=== PATIENT | male | born 1955 | race Caucasian/White ===

== ENCOUNTER 2018-03-31 09:09 | Inpatient (IN) | payer MEDICAID ==
[~2018-03-31] VITALS: Ht 182.9 cm; Wt 98.5 kg
[2018-03-31] MEDS ORDERED: SODIUM CHLORIDE FLUSH 10ML SYR IVF ONE (09:30)
[2018-03-31] MEDS ORDERED: SODIUM CHLORIDE 0.9% 1,000ML IVBOLUS ONE (09:30)
[2018-03-31 10:01] LABS: BASOPHILS % (AUTO) 0 % (0-1); EOSINOPHILS % (AUTO) 0 % (1-7); LYMPHOCYTES # (AUTO) 0.18 x10^3/uL (1-3.4); LYMPHOCYTES % (AUTO) 2 % (22-44); MD NO; MEAN CORPUSCULAR HEMOGLOBIN 26.9 pg (27.5-34.5); MEAN CORPUSCULAR HGB CONC 32.9 g/dL (33.2-36.2); MEAN CORPUSCULAR VOLUME 81.9 fL (81-97); MEAN PLATELET VOLUME 7.7 fL (7.4-10.4); MONOCYTES # (AUTO) 0.49 x10^3/uL (0.2-0.8); MONOCYTES % (AUTO) 5 % (2-9); NEUTROPHILS # (AUTO) 9.94 x10^3/uL (1.8-6.8); NEUTROPHILS % (AUTO) 94 % (42-75); PLATELET COUNT 301 x10^3/uL (130-400); RED BLOOD COUNT 5.51 x10^6/uL (4.38-5.82); RED CELL DISTRIBUTION WIDTH 15.9 % (9.4-14.8)
[2018-03-31 10:13] LABS: INTERNATIONAL NORMALIZED RATIO 1.17 (0.93-1.1); PROTHROMBIN TIME 12.3 Seconds (9.6-11.5)
--- NOTE | 2018-03-31 10:13 | NUR ---
Pt transported on gurney to imaging.
[2018-03-31 10:18] LABS: ALBUMIN 4.4 g/dL (3.4-5.0); ANION GAP 9 mmol/L (5-15); CALCIUM 8.8 mg/dL (8.5-10.1); CHLORIDE 91 mmol/L (98-107)
--- NOTE | 2018-03-31 10:19 | NUR ---
LATE NOTE ENTRY FOR 0945: Recieved report from [facility]. All questions answered. Pt resting on gurney connected to all monitors. Pt is diaphoretic and has labored respirations with 4L of oxygen on nasal cannula at 97% SPO2%. Pt wears 4L oxygen at home. Pt has petechiae on digits on both feet. Pt has erythema and swelling of lower extremities bilaterally. PIV established and fluids infusing per EMAR. All safety measures in place.
[2018-03-31 10:23] LABS: ALANINE AMINOTRANSFERASE 35 U/L (12-78); ALKALINE PHOSPHATASE 86 U/L (45-117); BILIRUBIN,TOTAL 1.2 mg/dL (0.2-1.0); TOTAL PROTEIN 8.4 g/dL (6.4-8.2); TROPONIN I < 0.015 ng/mL (0.000-0.045)
[2018-03-31] MEDS ORDERED: BUDE10.2 INH (10:25)
[2018-03-31] MEDS ORDERED: SODI1TAB PO (10:26)
[2018-03-31] MEDS ORDERED: BACL-19 PO (10:27)
[2018-03-31] MEDS ORDERED: FAMO20TA7 PO (10:27)
[2018-03-31] MEDS ORDERED: DOCU100C33 PO (10:28)
[2018-03-31] MEDS ORDERED: TAMS-11 PO (10:28)
[2018-03-31] MEDS ORDERED: MAGN400T7 PO (10:28)
[2018-03-31] MEDS ORDERED: TRAZ150T62 PO (10:29)
[2018-03-31] MEDS ORDERED: BUSP10TA PO (10:30)
[2018-03-31] MEDS ORDERED: PLEASE ENTER ALLERGIES MC SCH (10:30)
[2018-03-31] MEDS ORDERED: CEFTRIAXONE PMX 1GM/50ML 50 ML IVPB ONE (10:30)
[2018-03-31] MEDS ORDERED: RISP2TAB3 PO (10:32)
[2018-03-31] MEDS ORDERED: ALEN10TA6 PO (10:33)
[2018-03-31] MEDS ORDERED: TIOT18CA INH (10:33)
[2018-03-31] MEDS ORDERED: CHOL500050 PO (10:33)
[2018-03-31] MEDS ORDERED: CALC600T23 PO (10:34)
[2018-03-31] MEDS ORDERED: TRAM50TA2 PO (10:34)
[2018-03-31] MEDS ORDERED: WARF7.5T PO (10:34)
[2018-03-31] MEDS ORDERED: ONDA4TAB7 PO (10:35)
[2018-03-31] MEDS ORDERED: D5%-0.45% NACL 1,000 ML IV SCH (10:38)
--- NOTE | 2018-03-31 10:42 | NUR ---
Provided report to [facility]. All questions answered. Pt ready to transfer to floor after PIV antibiotics initated per EMAR.
[2018-03-31] MEDS ORDERED: CEFTRIAXONE PMX 1GM/50ML 50 ML ONE (10:43)
--- NOTE | 2018-03-31 10:52 | NUR ---
Pt transfered to floor from ED with regulatory and compliance technician, monitor, and oxygen. Pt transfered with all personal belongings.
--- NOTE | 2018-03-31 10:52 | NUR ---
PIV medications infusing per EMAR when pt transfered from ED to floor.
[2018-03-31] MEDS ORDERED: ONDANSETRON 2MG/ML, 2ML IVPush PRN (11:00)
[2018-03-31] MEDS ORDERED: ERGOCALCIFEROL 50,000 UNIT CAPSULE PO SCH (11:00)
[2018-03-31] MEDS ORDERED: POLYETHYLENE GLYCOL 17 GM PACKET PO PRN (11:00)
[2018-03-31] MEDS ORDERED: SODIUM CHLORIDE 0.9% 1,000 ML IV SCH (11:00)
[2018-03-31] MEDS ORDERED: ONDANSETRON ODT 4 MG PO PRN (11:00)
[2018-03-31] MEDS ORDERED: LABETALOL 5MG/ML, 20ML IVPush PRN (11:00)
[2018-03-31 11:18] LABS: FREE T4 (FREE THYROXINE) 1.31 ng/dL (0.76-1.46); THYROID STIMULATING HORMONE 0.89 mIU/L (0.358-3.740)
[2018-03-31] MEDS ORDERED: ALBUTEROL/IPRATROPIUM 2.5MG/0.5MG, 3 ML HHN SCH (11:30)
[2018-03-31 12:15] LABS: RAPID INFLUENZA A Negative (Negative); RAPID INFLUENZA B Negative (Negative)
[2018-03-31] MEDS ORDERED: VANCOMYCIN PER PHARMACY MC PRN (13:00)
[2018-03-31] MEDS ORDERED: HEPARIN 5,000 UNITS/ML, 1ML IV ONE (13:00)
[2018-03-31] MEDS ORDERED: POTASSIUM CHLORIDE 20 MEQ, MAGNESIUM SULFATE 1 GM, FOLIC ACID 1 MG, THIAMINE 200 MG, MV... IV SCH (13:00)
[2018-03-31] MEDS ORDERED: HEPARIN 25,000 UNITS/500ML PMX 500 ML IV PRN (13:00)
[2018-03-31] MEDS ORDERED: PHARMACOKINETIC CONSULTATION MC ONE (13:30)
[2018-03-31] MEDS ORDERED: PHARMACOKINETIC MONITORING MC PRN (13:30)
[2018-03-31] MEDS: PIPERACILLIN/TAZO/PMX 3.375GM 50 ML IV SCH ×2 (14:03→19:58)
[2018-03-31] MEDS: VANCOMYCIN 1,900 MG in SODIUM CHLORIDE 0.9% 250 ML IV SCH (14:47)
[2018-03-31] MEDS ORDERED: OMNIPAQUE 350 MG/ML, 100ML BOTTLE ONE (15:28)
[2018-03-31 15:42] VITALS: BP 145/84
[2018-03-31 16:02] LABS: CULTURE INDICATED? YES; MICROSCOPIC INDICATED
[2018-03-31 17:23] LABS: AMPHETAMINE SCREEN, URINE Negative (Negative); BARBITURATE SCREEN, URINE Negative (Negative); BENZODIAZEPINE SCREEN, URINE Negative (Negative); CANNABINOID SCREEN, URINE Negative (Negative); COCAINE SCREEN, URINE Negative (Negative); METHADONE SCREEN, URINE Negative (Negative); OPIATE SCREEN, URINE Negative (Negative)
[2018-03-31] MEDS ORDERED: WARFARIN 7.5 MG TABLET PO-COUM ONE (18:00)
[2018-03-31] MEDS: HEPARIN 25,000 UNITS/500ML PMX 500 ML IV PRN (19:41)
[2018-03-31 20:15] VITALS: BP 99/65
[2018-03-31] MEDS: ALBUTEROL/IPRATROPIUM 2.5MG/0.5MG, 3 ML HHN SCH ×2 (21:00→22:56)
[2018-03-31] MEDS: BUDESONIDE 0.5 MG/2 ML INHA HHN SCH ×2 (21:00→22:56)
[2018-03-31] MEDS ORDERED: TEMPLATE NON-FORMULARY MED. (Budesonide/Formoterol Fumarate (Symbicort 160-4.5 Mcg Inhaler INH SCH (21:00)
[2018-03-31] MEDS: TRAZODONE 150MG TABLET PO SCH (21:00)
[2018-04-01 01:06] VITALS: BP 117/81
[2018-04-01] MEDS: VANCOMYCIN 1,900 MG in SODIUM CHLORIDE 0.9% 250 ML IV SCH ×2 (01:52→14:12)
[2018-04-01] MEDS: ALBUTEROL/IPRATROPIUM 2.5MG/0.5MG, 3 ML HHN SCH ×4 (03:00→19:47)
[2018-04-01 03:33] LABS: ALANINE AMINOTRANSFERASE 52 U/L (12-78); ALBUMIN 2.7 g/dL (3.4-5.0); ANION GAP 6 mmol/L (5-15); CALCIUM 7.6 mg/dL (8.5-10.1); CHLORIDE 98 mmol/L (98-107)
[2018-04-01 03:35] LABS: BASOPHILS # (AUTO) 0.03 x10^3/uL (0-0.1); BASOPHILS % (AUTO) 0 % (0-1); EOSINOPHILS % (AUTO) 1 % (1-7); LYMPHOCYTES # (AUTO) 0.75 x10^3/uL (1-3.4); LYMPHOCYTES % (AUTO) 10 % (22-44); MD NO; MEAN CORPUSCULAR HEMOGLOBIN 25.9 pg (27.5-34.5); MEAN CORPUSCULAR HGB CONC 31.6 g/dL (33.2-36.2); MEAN PLATELET VOLUME 7.9 fL (7.4-10.4); MONOCYTES # (AUTO) 0.86 x10^3/uL (0.2-0.8); MONOCYTES % (AUTO) 12 % (2-9); NEUTROPHILS # (AUTO) 5.65 x10^3/uL (1.8-6.8); NEUTROPHILS % (AUTO) 76 % (42-75); PLATELET COUNT 292 x10^3/uL (130-400); RED BLOOD COUNT 5.21 x10^6/uL (4.38-5.82); RED CELL DISTRIBUTION WIDTH 16.3 % (9.4-14.8)
[2018-04-01 03:44] LABS: ALKALINE PHOSPHATASE 59 U/L (45-117); BILIRUBIN,TOTAL 0.6 mg/dL (0.2-1.0); TOTAL PROTEIN 5.8 g/dL (6.4-8.2)
[2018-04-01] MEDS: PIPERACILLIN/TAZO/PMX 3.375GM 50 ML IV SCH ×4 (04:04→21:38)
[2018-04-01 04:32] LABS: INTERNATIONAL NORMALIZED RATIO 1.45 (0.93-1.1); PROTHROMBIN TIME 15.2 Seconds (9.6-11.5)
[2018-04-01] MEDS: HEPARIN 5,000 UNITS/ML, 1ML IV PRN ×3 (04:33→20:04)
[2018-04-01 07:04] VITALS: BP 119/81
[2018-04-01] MEDS: BUDESONIDE 0.5 MG/2 ML INHA HHN SCH (07:35)
[2018-04-01] MEDS: ALENDRONATE 10 MG TABLET PO SCH (07:48)
[2018-04-01] MEDS: TAMSULOSIN 0.4 MG CAP.ER.24H PO SCH (07:48)
[2018-04-01] MEDS: SENNA/DOCUSATE TABLET PO SCH (07:49)
[2018-04-01] MEDS ORDERED: TEMPLATE NON-FORMULARY MED. (Tiotropium Bromide** (Spiriva**) 18 MCG) INH SCH (09:00)
[2018-04-01 12:17] VITALS: BP 121/81
[2018-04-01] MEDS ORDERED: WARFARIN 7.5 MG TABLET PO-COUM ONE (18:00)
[2018-04-01 19:56] VITALS: BP 100/65
[2018-04-01] MEDS: TRAZODONE 150MG TABLET PO SCH (20:05)
[2018-04-01] MEDS: HEPARIN 25,000 UNITS/500ML PMX 500 ML IV PRN (20:05)
[2018-04-01] MEDS: BUSPIRONE 10 MG TABLET PO SCH (20:05)
[2018-04-01] MEDS: RISPERIDONE 1 MG TABLET PO SCH (20:05)
[2018-04-02 01:52] VITALS: BP 107/72
[2018-04-02] MEDS: VANCOMYCIN 1,900 MG in SODIUM CHLORIDE 0.9% 250 ML IV SCH (02:19)
[2018-04-02] MEDS: ALBUTEROL/IPRATROPIUM 2.5MG/0.5MG, 3 ML HHN SCH ×4 (03:15→19:44)
[2018-04-02] MEDS: HEPARIN 5,000 UNITS/ML, 1ML IV PRN ×3 (03:55→18:15)
[2018-04-02 04:08] LABS: INTERNATIONAL NORMALIZED RATIO 1.27 (0.93-1.1); PROTHROMBIN TIME 13.3 Seconds (9.6-11.5)
[2018-04-02 05:51] VITALS: BP 98/56
[2018-04-02] MEDS: PIPERACILLIN/TAZO/PMX 3.375GM 50 ML IV SCH (06:25)
[2018-04-02 07:14] VITALS: BP 118/78
[2018-04-02] MEDS: ALENDRONATE 10 MG TABLET PO SCH (08:28)
[2018-04-02] MEDS: TAMSULOSIN 0.4 MG CAP.ER.24H PO SCH (08:28)
[2018-04-02] MEDS: SENNA/DOCUSATE TABLET PO SCH (08:28)
[2018-04-02] MEDS: BUSPIRONE 10 MG TABLET PO SCH ×2 (08:28→21:09)
[2018-04-02] MEDS: DOXYCYCLINE 100MG TABLET PO SCH ×2 (08:28→21:09)
[2018-04-02] MEDS: AMPICILLIN/SULBACTAM 3 GM in SODIUM CHLORIDE 0.9% 100 ML IV SCH ×3 (08:29→21:08)
[2018-04-02] MEDS: BUDESONIDE 0.5 MG/2 ML INHA HHN SCH ×2 (09:00→19:45)
[2018-04-02 12:57] LABS: ALBUMIN 2.7 g/dL (3.4-5.0); ANION GAP 6 mmol/L (5-15); CALCIUM 7.8 mg/dL (8.5-10.1); CHLORIDE 99 mmol/L (98-107)
[2018-04-02 13:00] LABS: ALANINE AMINOTRANSFERASE 47 U/L (12-78); ALKALINE PHOSPHATASE 54 U/L (45-117); BASOPHILS # (AUTO) 0.03 x10^3/uL (0-0.1); BASOPHILS % (AUTO) 0 % (0-1); BILIRUBIN,TOTAL 0.7 mg/dL (0.2-1.0); EOSINOPHILS # (AUTO) 0.12 x10^3/uL (0-0.4); EOSINOPHILS % (AUTO) 2 % (1-7); LYMPHOCYTES # (AUTO) 0.48 x10^3/uL (1-3.4); LYMPHOCYTES % (AUTO) 6 % (22-44); MD NO; MEAN CORPUSCULAR HEMOGLOBIN 26.8 pg (27.5-34.5); MEAN CORPUSCULAR HGB CONC 32.8 g/dL (33.2-36.2); MEAN CORPUSCULAR VOLUME 81.7 fL (81-97); MEAN PLATELET VOLUME 7.6 fL (7.4-10.4); MONOCYTES # (AUTO) 0.95 x10^3/uL (0.2-0.8); MONOCYTES % (AUTO) 12 % (2-9); NEUTROPHILS # (AUTO) 6.08 x10^3/uL (1.8-6.8); NEUTROPHILS % (AUTO) 79 % (42-75); PLATELET COUNT 240 x10^3/uL (130-400); RED BLOOD COUNT 4.42 x10^6/uL (4.38-5.82); RED CELL DISTRIBUTION WIDTH 16.8 % (9.4-14.8); TOTAL PROTEIN 5.9 g/dL (6.4-8.2)
[2018-04-02] MEDS: HEPARIN 25,000 UNITS/500ML PMX 500 ML IV PRN (14:03)
[2018-04-02 17:17] VITALS: BP 136/85
[2018-04-02] MEDS ORDERED: WARFARIN 10 MG TABLET PO-COUM ONE (18:00)
[2018-04-02 18:53] VITALS: BP 152/88
[2018-04-02] MEDS: RISPERIDONE 1 MG TABLET PO SCH (21:09)
[2018-04-02] MEDS: TRAZODONE 150MG TABLET PO SCH (21:09)
[2018-04-03 00:39] VITALS: BP 122/77
[2018-04-03] MEDS: HEPARIN 5,000 UNITS/ML, 1ML IV PRN ×3 (01:19→21:07)
[2018-04-03] MEDS: AMPICILLIN/SULBACTAM 3 GM in SODIUM CHLORIDE 0.9% 100 ML IV SCH ×4 (02:24→21:08)
[2018-04-03] MEDS: ALBUTEROL/IPRATROPIUM 2.5MG/0.5MG, 3 ML HHN SCH ×2 (02:51→08:25)
[2018-04-03] MEDS: HEPARIN 25,000 UNITS/500ML PMX 500 ML IV PRN ×2 (04:51→19:38)
[2018-04-03 07:34] VITALS: BP 109/68
[2018-04-03 07:44] LABS: INTERNATIONAL NORMALIZED RATIO 1.86 (0.93-1.1); PROTHROMBIN TIME 19.3 Seconds (9.6-11.5)
[2018-04-03] MEDS: BUDESONIDE 0.5 MG/2 ML INHA HHN SCH ×2 (08:25→21:00)
[2018-04-03] MEDS: DOXYCYCLINE 100MG TABLET PO SCH ×2 (08:36→21:09)
[2018-04-03] MEDS: TAMSULOSIN 0.4 MG CAP.ER.24H PO SCH (08:36)
[2018-04-03] MEDS: BUSPIRONE 10 MG TABLET PO SCH ×2 (08:36→21:09)
[2018-04-03] MEDS: ALENDRONATE 10 MG TABLET PO SCH (08:36)
[2018-04-03] MEDS: SENNA/DOCUSATE TABLET PO SCH (08:36)
[2018-04-03 12:52] VITALS: BP 121/74
[2018-04-03] MEDS ORDERED: ALBUTEROL/IPRATROPIUM 2.5MG/0.5MG, 3 ML HHN PRN (15:30)
[2018-04-03] MEDS ORDERED: WARFARIN 7.5 MG TABLET PO-COUM ONE (18:00)
[2018-04-03 19:11] VITALS: BP 132/67
[2018-04-03] MEDS: TRAZODONE 150MG TABLET PO SCH (21:09)
[2018-04-03] MEDS: RISPERIDONE 1 MG TABLET PO SCH (21:09)
[2018-04-04] MEDS: AMPICILLIN/SULBACTAM 3 GM in SODIUM CHLORIDE 0.9% 100 ML IV SCH ×4 (02:07→20:41)
[2018-04-04 03:39] LABS: INTERNATIONAL NORMALIZED RATIO 2.2 (0.93-1.1); PROTHROMBIN TIME 22.6 Seconds (9.6-11.5)
[2018-04-04 04:00] VITALS: BP 123/73
[2018-04-04] MEDS: BUDESONIDE 0.5 MG/2 ML INHA HHN SCH ×2 (07:51→21:00)
[2018-04-04 07:59] VITALS: BP 137/84
[2018-04-04 08:01] LABS: BASOPHILS # (AUTO) 0.03 x10^3/uL (0-0.1); BASOPHILS % (AUTO) 0 % (0-1); EOSINOPHILS # (AUTO) 0.22 x10^3/uL (0-0.4); EOSINOPHILS % (AUTO) 3 % (1-7); LYMPHOCYTES # (AUTO) 0.36 x10^3/uL (1-3.4); LYMPHOCYTES % (AUTO) 4 % (22-44); MD NO; MEAN CORPUSCULAR HEMOGLOBIN 25.9 pg (27.5-34.5); MEAN CORPUSCULAR HGB CONC 31.4 g/dL (33.2-36.2); MEAN CORPUSCULAR VOLUME 82.4 fL (81-97); MEAN PLATELET VOLUME 7.2 fL (7.4-10.4); MONOCYTES # (AUTO) 0.83 x10^3/uL (0.2-0.8); MONOCYTES % (AUTO) 10 % (2-9); NEUTROPHILS # (AUTO) 7.26 x10^3/uL (1.8-6.8); NEUTROPHILS % (AUTO) 84 % (42-75); PLATELET COUNT 287 x10^3/uL (130-400); RED BLOOD COUNT 4.29 x10^6/uL (4.38-5.82)
[2018-04-04 08:15] LABS: ALBUMIN 2.7 g/dL (3.4-5.0); ANION GAP 8 mmol/L (5-15); CALCIUM 7.6 mg/dL (8.5-10.1); CHLORIDE 100 mmol/L (98-107)
[2018-04-04 08:19] LABS: ALANINE AMINOTRANSFERASE 46 U/L (12-78); ALKALINE PHOSPHATASE 32 U/L (45-117); BILIRUBIN,TOTAL 0.4 mg/dL (0.2-1.0); CREATININE 2.54 mg/dL (0.7-1.3); TOTAL PROTEIN 6.3 g/dL (6.4-8.2)
[2018-04-04] MEDS: TAMSULOSIN 0.4 MG CAP.ER.24H PO SCH (08:21)
[2018-04-04] MEDS: BUSPIRONE 10 MG TABLET PO SCH (08:21)
[2018-04-04] MEDS: ALENDRONATE 10 MG TABLET PO SCH (08:21)
[2018-04-04] MEDS: DOXYCYCLINE 100MG TABLET PO SCH ×2 (08:21→21:54)
[2018-04-04] MEDS: SENNA/DOCUSATE TABLET PO SCH (08:22)
[2018-04-04] MEDS: HEPARIN 25,000 UNITS/500ML PMX 500 ML IV PRN ×2 (08:34→19:14)
[2018-04-04] MEDS ORDERED: ALBUTEROL/IPRATROPIUM 2.5MG/0.5MG, 3 ML HHN SCH (09:00)
[2018-04-04] MEDS ORDERED: PHARMACY MAY ADJ FOR RENAL FX MC PRN (09:30)
[2018-04-04 10:45] LABS: CREATININE,URINE RANDOM 34.7 mg/dL
[2018-04-04] MEDS: HEPARIN 5,000 UNITS/ML, 1ML IV PRN (11:01)
[2018-04-04 13:24] VITALS: BP 146/87
[2018-04-04] MEDS ORDERED: FUROSEMIDE 40 MG/4 ML IV ONE (13:30)
[2018-04-04 16:17] LABS: ANION GAP 8 mmol/L (5-15); CALCIUM 8.4 mg/dL (8.5-10.1); CHLORIDE 100 mmol/L (98-107); CREATININE 2.61 mg/dL (0.7-1.3)
[2018-04-04] MEDS ORDERED: FUROSEMIDE 20 MG/2 ML IV SCH (17:00)
[2018-04-04] MEDS ORDERED: WARFARIN 7.5 MG TABLET PO-COUM ONE (18:00)
[2018-04-04] MEDS ORDERED: SODIUM CHLORIDE 0.9% 500 ML IV SCH (18:30)
[2018-04-04 18:56] VITALS: BP 145/80
[2018-04-04] MEDS: SODIUM CHLORIDE 0.9% 1,000 ML IV SCH (20:41)
[2018-04-04] MEDS: RISPERIDONE 1 MG TABLET PO SCH (21:54)
[2018-04-04] MEDS: TRAZODONE 150MG TABLET PO SCH (22:00)
[2018-04-04] MEDS: FINASTERIDE 5 MG TABLET PO SCH (22:11)
[2018-04-05] MEDS: HEPARIN 5,000 UNITS/ML, 1ML IV PRN (00:59)
[2018-04-05 01:18] VITALS: BP 156/84
[2018-04-05] MEDS: AMPICILLIN/SULBACTAM 3 GM in SODIUM CHLORIDE 0.9% 100 ML IV SCH (02:42)
[2018-04-05 05:39] LABS: BASOPHILS # (AUTO) 0.01 x10^3/uL (0-0.1); BASOPHILS % (AUTO) 0 % (0-1); EOSINOPHILS # (AUTO) 0.34 x10^3/uL (0-0.4); EOSINOPHILS % (AUTO) 4 % (1-7); LYMPHOCYTES # (AUTO) 0.45 x10^3/uL (1-3.4); LYMPHOCYTES % (AUTO) 5 % (22-44); MD NO; MEAN CORPUSCULAR HEMOGLOBIN 26.4 pg (27.5-34.5); MEAN CORPUSCULAR HGB CONC 32.1 g/dL (33.2-36.2); MEAN CORPUSCULAR VOLUME 82.3 fL (81-97); MEAN PLATELET VOLUME 7.8 fL (7.4-10.4); MONOCYTES % (AUTO) 9 % (2-9); NEUTROPHILS % (AUTO) 82 % (42-75); PLATELET COUNT 284 x10^3/uL (130-400); RED BLOOD COUNT 4.08 x10^6/uL (4.38-5.82); RED CELL DISTRIBUTION WIDTH 16.8 % (9.4-14.8)
[2018-04-05] MEDS: SODIUM CHLORIDE 0.9% 1,000 ML IV SCH ×3 (05:44→23:53)
[2018-04-05 05:45] LABS: INTERNATIONAL NORMALIZED RATIO 3.05 (0.93-1.1)
[2018-04-05 05:50] LABS: ANION GAP 8 mmol/L (5-15); CALCIUM 8.1 mg/dL (8.5-10.1); CHLORIDE 101 mmol/L (98-107); CREATININE 2.47 mg/dL (0.7-1.3)
[2018-04-05] MEDS: HEPARIN 25,000 UNITS/500ML PMX 500 ML IV PRN (06:43)
[2018-04-05] MEDS ORDERED: AMOXICILLIN/CLAV 875-125MG TABLET PO SCH (07:00)
[2018-04-05 07:35] VITALS: BP 131/79
[2018-04-05] MEDS: TAMSULOSIN 0.4 MG CAP.ER.24H PO SCH (08:33)
[2018-04-05] MEDS: FINASTERIDE 5 MG TABLET PO SCH (08:33)
[2018-04-05] MEDS: SENNA/DOCUSATE TABLET PO SCH (08:33)
[2018-04-05] MEDS: DOXYCYCLINE 100MG TABLET PO SCH ×2 (08:33→20:09)
[2018-04-05] MEDS ORDERED: BUSPIRONE 10 MG TABLET PO SCH (09:00)
[2018-04-05] MEDS: BUDESONIDE 0.5 MG/2 ML INHA HHN SCH ×2 (09:00→21:00)
[2018-04-05] MEDS ORDERED: WARFARIN 3 MG TABLET PO-COUM ONE ×2 (09:00→18:00)
[2018-04-05 13:35] VITALS: BP 149/90
[2018-04-05 16:16] LABS: ANION GAP 7 mmol/L (5-15); CALCIUM 7.6 mg/dL (8.5-10.1); CHLORIDE 101 mmol/L (98-107); CREATININE 2.41 mg/dL (0.7-1.3)
[2018-04-05 19:18] VITALS: BP 139/82
[2018-04-05] MEDS: TRAZODONE 150MG TABLET PO SCH (20:08)
[2018-04-05] MEDS: CEFDINIR 300 MG CAPSULE PO SCH (20:09)
[2018-04-05] MEDS: RISPERIDONE 1 MG TABLET PO SCH (20:09)
[2018-04-05 22:04] LABS: MICROSCOPIC AUTO
[2018-04-05 22:06] LABS: CULTURE INDICATED? NO
[2018-04-05 22:15] LABS: CREATININE,URINE RANDOM 48.4 mg/dL
[2018-04-06 01:43] VITALS: BP 151/91
[2018-04-06 05:30] LABS: BASOPHILS # (AUTO) 0.03 x10^3/uL (0-0.1); BASOPHILS % (AUTO) 0 % (0-1); EOSINOPHILS # (AUTO) 0.14 x10^3/uL (0-0.4); EOSINOPHILS % (AUTO) 1 % (1-7); LYMPHOCYTES # (AUTO) 0.39 x10^3/uL (1-3.4); LYMPHOCYTES % (AUTO) 4 % (22-44); MD NO; MEAN CORPUSCULAR HEMOGLOBIN 26.8 pg (27.5-34.5); MEAN CORPUSCULAR HGB CONC 33.1 g/dL (33.2-36.2); MEAN CORPUSCULAR VOLUME 81.1 fL (81-97); MEAN PLATELET VOLUME 7.2 fL (7.4-10.4); MONOCYTES % (AUTO) 9 % (2-9); NEUTROPHILS # (AUTO) 8.49 x10^3/uL (1.8-6.8); NEUTROPHILS % (AUTO) 85 % (42-75); PLATELET COUNT 282 x10^3/uL (130-400); RED BLOOD COUNT 3.71 x10^6/uL (4.38-5.82); RED CELL DISTRIBUTION WIDTH 16.4 % (9.4-14.8)
[2018-04-06 05:39] LABS: ALBUMIN 2.6 g/dL (3.4-5.0); ANION GAP 9 mmol/L (5-15); CALCIUM 7.6 mg/dL (8.5-10.1); CHLORIDE 100 mmol/L (98-107); INTERNATIONAL NORMALIZED RATIO 5.26 (0.93-1.1); PROTHROMBIN TIME 52.3 Seconds (9.6-11.5)
[2018-04-06 05:43] LABS: ALANINE AMINOTRANSFERASE 39 U/L (12-78); ALKALINE PHOSPHATASE 66 U/L (45-117); BILIRUBIN,TOTAL 0.5 mg/dL (0.2-1.0); CREATININE 2.23 mg/dL (0.7-1.3)
[2018-04-06 07:30] VITALS: BP 167/95
[2018-04-06] MEDS ORDERED: CARVEDILOL 6.25 MG TABLET PO SCH (08:00)
[2018-04-06] MEDS ORDERED: CARVEDILOL 3.125 MG TABLET PO SCH (08:00)
[2018-04-06] MEDS ORDERED: HOLD COUMADIN MC PRN (08:00)
[2018-04-06] MEDS: BUDESONIDE 0.5 MG/2 ML INHA HHN SCH ×2 (09:00→21:00)
[2018-04-06] MEDS: SENNA/DOCUSATE TABLET PO SCH (09:00)
[2018-04-06] MEDS: RISPERIDONE 1 MG TABLET PO SCH ×2 (09:56→21:35)
[2018-04-06] MEDS: TAMSULOSIN 0.4 MG CAP.ER.24H PO SCH (09:56)
[2018-04-06] MEDS: CEFDINIR 300 MG CAPSULE PO SCH ×2 (09:56→21:34)
[2018-04-06] MEDS: FINASTERIDE 5 MG TABLET PO SCH (09:56)
[2018-04-06 12:39] VITALS: BP 156/82
[2018-04-06] MEDS: ALBUTEROL/IPRATROPIUM 2.5MG/0.5MG, 3 ML HHN PRN (13:31)
[2018-04-06] MEDS: CARVEDILOL 3.125 MG TABLET PO SCH (17:12)
[2018-04-06 19:24] VITALS: BP 131/80
[2018-04-06] MEDS: TRAZODONE 150MG TABLET PO SCH (21:35)
[2018-04-07 01:53] VITALS: BP 126/66
[2018-04-07 05:24] LABS: CALCIUM 8.2 mg/dL (8.5-10.1); CHLORIDE 101 mmol/L (98-107); INTERNATIONAL NORMALIZED RATIO 5.74 (0.93-1.1); PROTHROMBIN TIME 56.9 Seconds (9.6-11.5)
[2018-04-07 05:27] LABS: % IRON SATURATION 9 % (20-55); ANION GAP 7 mmol/L (5-15); CREATININE 1.95 mg/dL (0.7-1.3); IRON LEVEL 26 mcg/dL (65-175); TOTAL IRON BINDING CAPACITY 286 mcg/dL (250-450)
[2018-04-07] MEDS: CARVEDILOL 3.125 MG TABLET PO SCH ×2 (06:04→17:54)
[2018-04-07] MEDS: BUDESONIDE 0.5 MG/2 ML INHA HHN SCH ×2 (06:38→21:00)
[2018-04-07 07:01] VITALS: BP 126/77
[2018-04-07] MEDS ORDERED: HOLD COUMADIN MC PRN (07:30)
[2018-04-07] MEDS: RISPERIDONE 1 MG TABLET PO SCH ×2 (07:48→19:54)
[2018-04-07] MEDS: CEFDINIR 300 MG CAPSULE PO SCH ×2 (07:48→19:53)
[2018-04-07] MEDS: TAMSULOSIN 0.4 MG CAP.ER.24H PO SCH (07:48)
[2018-04-07] MEDS: SENNA/DOCUSATE TABLET PO SCH (07:48)
[2018-04-07] MEDS: FERROUS SULFATE 325 MG TABLET PO SCH (08:42)
[2018-04-07] MEDS: FINASTERIDE 5 MG TABLET PO SCH (08:42)
[2018-04-07 12:15] VITALS: BP 132/85
[2018-04-07 17:41] VITALS: BP 163/103
[2018-04-07 19:47] VITALS: BP 149/90
[2018-04-07] MEDS: TRAZODONE 150MG TABLET PO SCH (19:53)
[2018-04-08 02:37] VITALS: BP 136/90
[2018-04-08 05:31] LABS: INTERNATIONAL NORMALIZED RATIO 3.93 (0.93-1.1); PROTHROMBIN TIME 39.5 Seconds (9.6-11.5)
[2018-04-08] MEDS: CARVEDILOL 3.125 MG TABLET PO SCH ×2 (06:00→06:20)
[2018-04-08 07:51] VITALS: BP 147/76
[2018-04-08] MEDS: ALBUTEROL/IPRATROPIUM 2.5MG/0.5MG, 3 ML HHN PRN (08:20)
[2018-04-08] MEDS: BUDESONIDE 0.5 MG/2 ML INHA HHN SCH ×3 (08:20→21:10)
[2018-04-08] MEDS: CEFDINIR 300 MG CAPSULE PO SCH ×2 (08:38→21:55)
[2018-04-08] MEDS: SENNA/DOCUSATE TABLET PO SCH (08:38)
[2018-04-08] MEDS: TAMSULOSIN 0.4 MG CAP.ER.24H PO SCH (08:38)
[2018-04-08] MEDS: RISPERIDONE 1 MG TABLET PO SCH ×3 (08:38→21:00)
[2018-04-08] MEDS: FINASTERIDE 5 MG TABLET PO SCH (08:38)
[2018-04-08 13:26] VITALS: BP 177/93
[2018-04-08 17:55] VITALS: BP 152/85
[2018-04-08] MEDS: CARVEDILOL 12.5 MG TABLET PO SCH (17:59)
[2018-04-08] MEDS ORDERED: WARFARIN 1 MG TABLET PO-COUM ONE (18:00)
[2018-04-08 20:14] VITALS: BP 147/87
[2018-04-08] MEDS: TRAZODONE 150MG TABLET PO SCH (21:56)
[2018-04-09 02:01] VITALS: BP 135/78
[2018-04-09 05:17] LABS: INTERNATIONAL NORMALIZED RATIO 2.92 (0.93-1.1); PROTHROMBIN TIME 29.7 Seconds (9.6-11.5)
[2018-04-09] MEDS ORDERED: CARVEDILOL 6.25 MG TABLET ONE ×2 (06:37→17:30)
[2018-04-09] MEDS: CARVEDILOL 12.5 MG TABLET PO SCH ×2 (06:40→17:33)
[2018-04-09 06:42] VITALS: BP 135/83
[2018-04-09] MEDS: FERROUS SULFATE 325 MG TABLET PO SCH (08:28)
[2018-04-09] MEDS: TAMSULOSIN 0.4 MG CAP.ER.24H PO SCH (08:28)
[2018-04-09] MEDS: SENNA/DOCUSATE TABLET PO SCH (08:28)
[2018-04-09] MEDS: FINASTERIDE 5 MG TABLET PO SCH (08:29)
[2018-04-09] MEDS: CEFDINIR 300 MG CAPSULE PO SCH ×2 (08:29→20:05)
[2018-04-09 08:42] VITALS: BP 124/75
[2018-04-09 17:26] VITALS: BP 157/89
[2018-04-09] MEDS ORDERED: WARFARIN 2.5 MG TABLET PO-COUM ONE (18:00)
[2018-04-09 18:47] VITALS: BP 158/96
[2018-04-09] MEDS: TRAZODONE 150MG TABLET PO SCH (20:06)
[2018-04-09] MEDS: RISPERIDONE 1 MG TABLET PO SCH (20:06)
[2018-04-09] MEDS: BUDESONIDE 0.5 MG/2 ML INHA HHN SCH (22:40)
[2018-04-10 02:21] VITALS: BP 130/76
[2018-04-10 05:46] LABS: INTERNATIONAL NORMALIZED RATIO 1.8 (0.93-1.1); PROTHROMBIN TIME 18.7 Seconds (9.6-11.5)
[2018-04-10] MEDS ORDERED: CARVEDILOL 6.25 MG TABLET ONE ×2 (05:50→17:14)
[2018-04-10 05:52] LABS: ALBUMIN 2.4 g/dL (3.4-5.0); ANION GAP 4 mmol/L (5-15); CALCIUM 8.7 mg/dL (8.5-10.1); CHLORIDE 105 mmol/L (98-107)
[2018-04-10] MEDS: CARVEDILOL 12.5 MG TABLET PO SCH ×2 (05:53→17:17)
[2018-04-10 05:57] LABS: ALANINE AMINOTRANSFERASE 26 U/L (12-78); ALKALINE PHOSPHATASE 67 U/L (45-117); CREATININE 2.04 mg/dL (0.7-1.3); TOTAL PROTEIN 6.4 g/dL (6.4-8.2)
[2018-04-10 07:55] VITALS: BP 124/71
[2018-04-10] MEDS: FINASTERIDE 5 MG TABLET PO SCH (08:41)
[2018-04-10] MEDS: SENNA/DOCUSATE TABLET PO SCH (08:42)
[2018-04-10] MEDS: CEFDINIR 300 MG CAPSULE PO SCH (08:42)
[2018-04-10] MEDS: TAMSULOSIN 0.4 MG CAP.ER.24H PO SCH (08:42)
[2018-04-10] MEDS: BUDESONIDE 0.5 MG/2 ML INHA HHN SCH ×2 (09:00→20:06)
[2018-04-10 12:57] VITALS: BP 132/73
[2018-04-10] MEDS ORDERED: WARFARIN 7.5 MG TABLET PO-COUM ONE (18:00)
[2018-04-10 19:39] VITALS: BP 145/77
[2018-04-10] MEDS: RISPERIDONE 1 MG TABLET PO SCH (21:20)
[2018-04-10] MEDS: TRAZODONE 150MG TABLET PO SCH (21:21)
[2018-04-11 01:36] VITALS: BP 101/64
[2018-04-11] MEDS ORDERED: CARVEDILOL 6.25 MG TABLET ONE ×2 (05:23→17:27)
[2018-04-11] MEDS: CARVEDILOL 12.5 MG TABLET PO SCH ×2 (05:25→17:30)
[2018-04-11 06:01] LABS: INTERNATIONAL NORMALIZED RATIO 1.54 (0.93-1.1); PROTHROMBIN TIME 16.1 Seconds (9.6-11.5)
[2018-04-11] MEDS: BUDESONIDE 0.5 MG/2 ML INHA HHN SCH ×2 (06:53→21:10)
[2018-04-11] MEDS: FERROUS SULFATE 325 MG TABLET PO SCH (08:00)
[2018-04-11] MEDS: TAMSULOSIN 0.4 MG CAP.ER.24H PO SCH (08:59)
[2018-04-11] MEDS: SENNA/DOCUSATE TABLET PO SCH (08:59)
[2018-04-11] MEDS: FINASTERIDE 5 MG TABLET PO SCH (08:59)
[2018-04-11 09:04] VITALS: BP 126/77
[2018-04-11] MEDS ORDERED: OLANZAPINE 5 MG TABLET PO ONE (15:30)
[2018-04-11 15:43] VITALS: BP 148/74
[2018-04-11] MEDS ORDERED: WARFARIN 7.5 MG TABLET PO-COUM ONE (18:00)
[2018-04-11 18:50] VITALS: BP 137/79
[2018-04-11] MEDS: OLANZAPINE 5 MG TABLET PO SCH (19:42)
[2018-04-12 00:26] VITALS: BP 142/82
[2018-04-12] MEDS: LORazepam 1MG TABLET PO PRN (03:25)
[2018-04-12 05:38] LABS: INTERNATIONAL NORMALIZED RATIO 2.04 (0.93-1.1)
[2018-04-12 06:09] VITALS: BP 138/75
[2018-04-12] MEDS: CARVEDILOL 12.5 MG TABLET PO SCH ×2 (06:10→17:45)
[2018-04-12] MEDS: BUDESONIDE 0.5 MG/2 ML INHA HHN SCH ×2 (08:15→21:53)
[2018-04-12] MEDS: FINASTERIDE 5 MG TABLET PO SCH (08:53)
[2018-04-12] MEDS: TAMSULOSIN 0.4 MG CAP.ER.24H PO SCH (08:53)
[2018-04-12] MEDS: SENNA/DOCUSATE TABLET PO SCH (08:54)
[2018-04-12 08:59] VITALS: BP 144/72
[2018-04-12 15:04] VITALS: BP 135/82
[2018-04-12] MEDS ORDERED: WARFARIN 5 MG TABLET PO-COUM ONE (18:00)
[2018-04-12] MEDS: OLANZAPINE 5 MG TABLET PO SCH (19:16)
[2018-04-12 20:23] VITALS: BP 134/77
[2018-04-13 01:26] VITALS: BP 133/83
[2018-04-13] MEDS: CARVEDILOL 12.5 MG TABLET PO SCH ×2 (05:26→18:00)
[2018-04-13 05:43] LABS: INTERNATIONAL NORMALIZED RATIO 2.08 (0.93-1.1); PROTHROMBIN TIME 21.4 Seconds (9.6-11.5)
[2018-04-13 07:04] VITALS: BP 127/85
[2018-04-13] MEDS: FERROUS SULFATE 325 MG TABLET PO SCH (08:04)
[2018-04-13] MEDS: FINASTERIDE 5 MG TABLET PO SCH (08:04)
[2018-04-13] MEDS: TAMSULOSIN 0.4 MG CAP.ER.24H PO SCH (08:04)
[2018-04-13] MEDS: SENNA/DOCUSATE TABLET PO SCH (08:05)
[2018-04-13] MEDS: BUDESONIDE 0.5 MG/2 ML INHA HHN SCH ×2 (08:29→19:45)
[2018-04-13 12:23] VITALS: BP 130/80
[2018-04-13] MEDS ORDERED: WARFARIN 5 MG TABLET PO-COUM ONE (18:00)
[2018-04-13] MEDS ORDERED: CARVEDILOL 6.25 MG TABLET ONE (18:10)
[2018-04-13 19:45] VITALS: BP 125/59
[2018-04-13] MEDS: OLANZAPINE 5 MG TABLET PO SCH (20:31)
[2018-04-13] MEDS: LORazepam 1MG TABLET PO PRN (22:15)
[2018-04-14 01:33] VITALS: BP 90/51
[2018-04-14 05:52] LABS: BASOPHILS # (AUTO) 0.03 x10^3/uL (0-0.1); BASOPHILS % (AUTO) 0 % (0-1); EOSINOPHILS # (AUTO) 0.45 x10^3/uL (0-0.4); EOSINOPHILS % (AUTO) 5 % (1-7); LYMPHOCYTES # (AUTO) 1.04 x10^3/uL (1-3.4); LYMPHOCYTES % (AUTO) 11 % (22-44); MD NO; MEAN CORPUSCULAR HEMOGLOBIN 27.2 pg (27.5-34.5); MEAN CORPUSCULAR HGB CONC 33.1 g/dL (33.2-36.2); MEAN PLATELET VOLUME 7.3 fL (7.4-10.4); MONOCYTES # (AUTO) 0.96 x10^3/uL (0.2-0.8); MONOCYTES % (AUTO) 10 % (2-9); NEUTROPHILS # (AUTO) 7.25 x10^3/uL (1.8-6.8); NEUTROPHILS % (AUTO) 75 % (42-75); PLATELET COUNT 559 x10^3/uL (130-400); RED BLOOD COUNT 3.18 x10^6/uL (4.38-5.82); RED CELL DISTRIBUTION WIDTH 17.3 % (9.4-14.8)
[2018-04-14 05:56] LABS: INTERNATIONAL NORMALIZED RATIO 2.59 (0.93-1.1); PROTHROMBIN TIME 26.5 Seconds (9.6-11.5)
[2018-04-14] MEDS ORDERED: CARVEDILOL 6.25 MG TABLET ONE ×2 (06:00→18:28)
[2018-04-14] MEDS: CARVEDILOL 12.5 MG TABLET PO SCH ×2 (06:00→18:31)
[2018-04-14 06:01] LABS: ALBUMIN 2.5 g/dL (3.4-5.0); ANION GAP 4 mmol/L (5-15); CALCIUM 8.7 mg/dL (8.5-10.1); CHLORIDE 111 mmol/L (98-107)
[2018-04-14 06:06] LABS: ALANINE AMINOTRANSFERASE 23 U/L (12-78); ALKALINE PHOSPHATASE 82 U/L (45-117); BILIRUBIN,TOTAL 0.6 mg/dL (0.2-1.0); TOTAL PROTEIN 6.9 g/dL (6.4-8.2)
[2018-04-14] MEDS: BUDESONIDE 0.5 MG/2 ML INHA HHN SCH ×2 (06:45→21:07)
[2018-04-14 07:34] VITALS: BP 122/76
[2018-04-14] MEDS: FINASTERIDE 5 MG TABLET PO SCH (10:06)
[2018-04-14] MEDS: SENNA/DOCUSATE TABLET PO SCH (10:07)
[2018-04-14] MEDS: TAMSULOSIN 0.4 MG CAP.ER.24H PO SCH (10:07)
[2018-04-14 12:47] VITALS: BP 148/80
[2018-04-14] MEDS: LORazepam 1MG TABLET PO PRN (13:23)
[2018-04-14] MEDS ORDERED: WARFARIN 5 MG TABLET PO-COUM ONE (18:00)
[2018-04-14 18:33] VITALS: BP 142/86
[2018-04-14 19:14] VITALS: BP 154/88
[2018-04-14] MEDS: RISPERIDONE 2 MG TABLET PO SCH (20:28)
[2018-04-15 01:47] VITALS: BP 108/69
[2018-04-15 04:40] VITALS: BP 119/76
[2018-04-15] MEDS: LORazepam 1MG TABLET PO PRN ×2 (05:31→18:13)
[2018-04-15] MEDS: CARVEDILOL 12.5 MG TABLET PO SCH ×2 (05:31→17:59)
[2018-04-15 05:42] LABS: INTERNATIONAL NORMALIZED RATIO 3.54 (0.93-1.1); PROTHROMBIN TIME 35.7 Seconds (9.6-11.5)
[2018-04-15 08:00] VITALS: BP 129/81
[2018-04-15] MEDS ORDERED: HOLD COUMADIN MC PRN (08:00)
[2018-04-15] MEDS: BUDESONIDE 0.5 MG/2 ML INHA HHN SCH ×2 (09:00→20:46)
[2018-04-15] MEDS: FERROUS SULFATE 325 MG TABLET PO SCH (09:13)
[2018-04-15] MEDS: FINASTERIDE 5 MG TABLET PO SCH (09:13)
[2018-04-15] MEDS: TAMSULOSIN 0.4 MG CAP.ER.24H PO SCH (09:13)
[2018-04-15] MEDS: SENNA/DOCUSATE TABLET PO SCH (09:14)
[2018-04-15 13:47] VITALS: BP 135/82
[2018-04-15 19:42] VITALS: BP 154/87
[2018-04-15] MEDS: RISPERIDONE 2 MG TABLET PO SCH (21:00)
[2018-04-16 01:47] VITALS: BP 107/66
[2018-04-16] MEDS: CARVEDILOL 12.5 MG TABLET PO SCH ×2 (05:10→17:29)
[2018-04-16] MEDS: BUDESONIDE 0.5 MG/2 ML INHA HHN SCH ×2 (06:30→21:00)
[2018-04-16 07:29] LABS: ANION GAP 3 mmol/L (5-15); CALCIUM 8.5 mg/dL (8.5-10.1); CHLORIDE 114 mmol/L (98-107); CREATININE 2.18 mg/dL (0.7-1.3)
[2018-04-16 07:33] LABS: BASOPHILS # (AUTO) 0.04 x10^3/uL (0-0.1); BASOPHILS % (AUTO) 0 % (0-1); EOSINOPHILS # (AUTO) 0.22 x10^3/uL (0-0.4); EOSINOPHILS % (AUTO) 2 % (1-7); LYMPHOCYTES # (AUTO) 0.72 x10^3/uL (1-3.4); LYMPHOCYTES % (AUTO) 8 % (22-44); MD NO; MEAN CORPUSCULAR HGB CONC 31.1 g/dL (33.2-36.2); MEAN CORPUSCULAR VOLUME 83.7 fL (81-97); MEAN PLATELET VOLUME 7.5 fL (7.4-10.4); MONOCYTES # (AUTO) 0.51 x10^3/uL (0.2-0.8); MONOCYTES % (AUTO) 6 % (2-9); NEUTROPHILS % (AUTO) 84 % (42-75); PLATELET COUNT 596 x10^3/uL (130-400); RED BLOOD COUNT 3.23 x10^6/uL (4.38-5.82); RED CELL DISTRIBUTION WIDTH 17.3 % (9.4-14.8)
[2018-04-16 07:59] LABS: INTERNATIONAL NORMALIZED RATIO 4.69 (0.93-1.1); PROTHROMBIN TIME 46.8 Seconds (9.6-11.5)
[2018-04-16] MEDS ORDERED: DEXTROSE 5% 1,000 ML IV SCH (08:00)
[2018-04-16 08:33] VITALS: BP 134/75
[2018-04-16] MEDS ORDERED: HOLD COUMADIN MC PRN (09:00)
[2018-04-16] MEDS: SENNA/DOCUSATE TABLET PO SCH (09:06)
[2018-04-16] MEDS: TAMSULOSIN 0.4 MG CAP.ER.24H PO SCH (09:12)
[2018-04-16] MEDS: FINASTERIDE 5 MG TABLET PO SCH (09:12)
[2018-04-16] MEDS: RISPERIDONE 2 MG TABLET PO SCH (14:02)
[2018-04-16 14:55] VITALS: BP 124/71
[2018-04-16] MEDS ORDERED: CARVEDILOL 6.25 MG TABLET ONE (17:20)
[2018-04-16 20:00] VITALS: BP 124/75
[2018-04-17 02:00] VITALS: BP 145/77
[2018-04-17] MEDS: CARVEDILOL 12.5 MG TABLET PO SCH ×2 (05:54→17:57)
[2018-04-17 06:13] LABS: PROTHROMBIN TIME 51.5 Seconds (9.6-11.5)
[2018-04-17 06:14] LABS: INTERNATIONAL NORMALIZED RATIO 5.18 (0.93-1.1)
[2018-04-17 07:30] VITALS: BP 118/67
[2018-04-17] MEDS: FINASTERIDE 5 MG TABLET PO SCH (10:47)
[2018-04-17] MEDS: TAMSULOSIN 0.4 MG CAP.ER.24H PO SCH (10:48)
[2018-04-17] MEDS: BUDESONIDE 0.5 MG/2 ML INHA HHN SCH ×2 (10:50→19:30)
[2018-04-17] MEDS: FERROUS SULFATE 325 MG TABLET PO SCH (10:51)
[2018-04-17] MEDS: SENNA/DOCUSATE TABLET PO SCH (10:52)
[2018-04-17 13:49] VITALS: BP 161/98
[2018-04-17] MEDS ORDERED: RISPERIDONE 2 MG TABLET PO ONE (14:30)
[2018-04-17 19:38] VITALS: BP 133/82
[2018-04-17] MEDS: RISPERIDONE 1 MG TABLET PO SCH (21:39)
[2018-04-18] MEDS: LORazepam 1MG TABLET PO PRN ×3 (00:09→20:11)
[2018-04-18 00:19] VITALS: BP 131/79
[2018-04-18 05:07] LABS: INTERNATIONAL NORMALIZED RATIO 4.91 (0.93-1.1)
[2018-04-18 06:38] VITALS: BP 129/74
[2018-04-18] MEDS: TAMSULOSIN 0.4 MG CAP.ER.24H PO SCH (08:24)
[2018-04-18] MEDS: FINASTERIDE 5 MG TABLET PO SCH (08:25)
[2018-04-18] MEDS: CARVEDILOL 12.5 MG TABLET PO SCH ×2 (08:25→20:12)
[2018-04-18] MEDS: SENNA/DOCUSATE TABLET PO SCH (08:25)
[2018-04-18] MEDS: RISPERIDONE 1 MG TABLET PO SCH ×2 (08:25→20:12)
[2018-04-18] MEDS: BUDESONIDE 0.5 MG/2 ML INHA HHN SCH ×2 (09:42→19:16)
[2018-04-18] MEDS: AMOXICILLIN/CLAV 875-125MG TABLET PO SCH ×2 (11:19→20:12)
[2018-04-18 13:13] VITALS: BP 130/79
--- NOTE | 2018-04-18 13:42 | NUR ---
REC: chopped diet with NTL with intermittent supervision Addendum: 04/18/18 at 1342 by Zena ALLEN Amended: Links added.
[2018-04-18 20:19] VITALS: BP 125/76
[2018-04-19 01:42] VITALS: BP 136/78
[2018-04-19] MEDS: CARVEDILOL 12.5 MG TABLET PO SCH ×2 (04:47→18:01)
[2018-04-19] MEDS: LORazepam 1MG TABLET PO PRN ×2 (04:47→15:44)
[2018-04-19 05:12] LABS: INTERNATIONAL NORMALIZED RATIO 2.62 (0.93-1.1); PROTHROMBIN TIME 26.8 Seconds (9.6-11.5)
[2018-04-19 07:02] VITALS: BP 108/69
[2018-04-19] MEDS: TAMSULOSIN 0.4 MG CAP.ER.24H PO SCH (07:54)
[2018-04-19] MEDS: AMOXICILLIN/CLAV 875-125MG TABLET PO SCH ×2 (07:54→21:00)
[2018-04-19] MEDS: SENNA/DOCUSATE TABLET PO SCH (07:54)
[2018-04-19] MEDS: FINASTERIDE 5 MG TABLET PO SCH (07:54)
[2018-04-19] MEDS: RISPERIDONE 1 MG TABLET PO SCH ×2 (07:54→21:01)
[2018-04-19] MEDS: FERROUS SULFATE 325 MG TABLET PO SCH (07:56)
[2018-04-19] MEDS: BUDESONIDE 0.5 MG/2 ML INHA HHN SCH ×2 (09:00→19:30)
[2018-04-19] MEDS ORDERED: LORazepam 2 MG/ML, 1ML ONE (09:59)
[2018-04-19] MEDS ORDERED: LORazepam 2 MG/ML, 1ML IVPush ONE (10:00)
[2018-04-19 15:06] VITALS: BP 123/75
[2018-04-19] MEDS: LORazepam 2 MG/ML, 1ML IVPush PRN (16:31)
[2018-04-19] MEDS ORDERED: WARFARIN 3 MG TABLET PO-COUM SCH (18:00)
[2018-04-19 19:28] VITALS: BP 104/64
[2018-04-20 01:06] VITALS: BP 115/69
[2018-04-20] MEDS: CARVEDILOL 12.5 MG TABLET PO SCH ×2 (05:16→18:27)
[2018-04-20] MEDS: LORazepam 2 MG/ML, 1ML IVPush PRN (05:16)
[2018-04-20 05:20] LABS: INTERNATIONAL NORMALIZED RATIO 2.42 (0.93-1.1); PROTHROMBIN TIME 24.8 Seconds (9.6-11.5)
[2018-04-20] MEDS: BUDESONIDE 0.5 MG/2 ML INHA HHN SCH ×2 (09:00→21:20)
[2018-04-20 10:59] VITALS: BP 123/72
[2018-04-20] MEDS: TAMSULOSIN 0.4 MG CAP.ER.24H PO SCH (11:01)
[2018-04-20] MEDS: AMOXICILLIN/CLAV 875-125MG TABLET PO SCH ×2 (11:01→21:35)
[2018-04-20] MEDS: FINASTERIDE 5 MG TABLET PO SCH (11:02)
[2018-04-20] MEDS: RISPERIDONE 1 MG TABLET PO SCH ×2 (11:02→21:35)
[2018-04-20] MEDS: SENNA/DOCUSATE TABLET PO SCH (11:02)
[2018-04-20 13:06] VITALS: BP 117/74
--- NOTE | 2018-04-20 17:13 | NUR ---
Student university internship supervised by Zena Bahena M.S., [facility]. Note will be cosigned by Latasha Turpin. Addendum: 04/20/18 at [address] Amended: Links added.
[2018-04-20] MEDS ORDERED: WARFARIN 2 MG TABLET PO-COUM ONE (18:00)
[2018-04-20 20:00] VITALS: BP 124/78
[2018-04-21 01:17] VITALS: BP 121/70
[2018-04-21 05:11] LABS: BASOPHILS # (AUTO) 0.02 x10^3/uL (0-0.1); BASOPHILS % (AUTO) 0 % (0-1); EOSINOPHILS # (AUTO) 0.25 x10^3/uL (0-0.4); EOSINOPHILS % (AUTO) 4 % (1-7); LYMPHOCYTES # (AUTO) 0.77 x10^3/uL (1-3.4); LYMPHOCYTES % (AUTO) 11 % (22-44); MD NO; MEAN CORPUSCULAR HEMOGLOBIN 26.8 pg (27.5-34.5); MEAN CORPUSCULAR HGB CONC 31.7 g/dL (33.2-36.2); MEAN CORPUSCULAR VOLUME 84.6 fL (81-97); MEAN PLATELET VOLUME 7.5 fL (7.4-10.4); MONOCYTES # (AUTO) 0.42 x10^3/uL (0.2-0.8); MONOCYTES % (AUTO) 6 % (2-9); NEUTROPHILS # (AUTO) 5.44 x10^3/uL (1.8-6.8); NEUTROPHILS % (AUTO) 79 % (42-75); PLATELET COUNT 362 x10^3/uL (130-400); RED BLOOD COUNT 3.57 x10^6/uL (4.38-5.82); RED CELL DISTRIBUTION WIDTH 17.4 % (9.4-14.8)
[2018-04-21 05:17] LABS: INTERNATIONAL NORMALIZED RATIO 3.51 (0.93-1.1); PROTHROMBIN TIME 35.5 Seconds (9.6-11.5)
[2018-04-21 05:24] LABS: ANION GAP 2 mmol/L (5-15); CALCIUM 8.6 mg/dL (8.5-10.1); CHLORIDE 118 mmol/L (98-107)
[2018-04-21 05:25] LABS: CREATININE 1.73 mg/dL (0.7-1.3)
[2018-04-21] MEDS: CARVEDILOL 12.5 MG TABLET PO SCH ×2 (05:31→17:16)
[2018-04-21] MEDS: LORazepam 2 MG/ML, 1ML IVPush PRN ×2 (05:43→20:03)
[2018-04-21] MEDS: LORazepam 1MG TABLET PO PRN (05:46)
[2018-04-21] MEDS: BUDESONIDE 0.5 MG/2 ML INHA HHN SCH ×2 (06:53→21:48)
[2018-04-21 07:52] VITALS: BP 111/70
[2018-04-21] MEDS ORDERED: HOLD COUMADIN MC PRN (08:00)
[2018-04-21] MEDS: RISPERIDONE 1 MG TABLET PO SCH ×2 (11:19→20:02)
[2018-04-21] MEDS: TAMSULOSIN 0.4 MG CAP.ER.24H PO SCH (11:20)
[2018-04-21] MEDS: AMOXICILLIN/CLAV 875-125MG TABLET PO SCH ×2 (11:20→20:02)
[2018-04-21] MEDS: SENNA/DOCUSATE TABLET PO SCH (11:20)
[2018-04-21] MEDS: FINASTERIDE 5 MG TABLET PO SCH (11:20)
[2018-04-21] MEDS: FERROUS SULFATE 325 MG TABLET PO SCH (11:25)
[2018-04-21] MEDS: DEXTROSE 5% 1,000 ML IV SCH (12:14)
[2018-04-21 16:32] VITALS: BP 118/68
[2018-04-21 18:56] VITALS: BP 122/74
[2018-04-22] MEDS: DEXTROSE 5% 1,000 ML IV SCH (00:51)
[2018-04-22 02:54] VITALS: BP 117/69
[2018-04-22] MEDS: CARVEDILOL 12.5 MG TABLET PO SCH ×2 (05:42→20:08)
[2018-04-22] MEDS: LORazepam 2 MG/ML, 1ML IVPush PRN ×2 (05:44→16:14)
[2018-04-22] MEDS: BUDESONIDE 0.5 MG/2 ML INHA HHN SCH ×2 (06:45→21:32)
[2018-04-22 07:32] LABS: INTERNATIONAL NORMALIZED RATIO 3.96 (0.93-1.1); PROTHROMBIN TIME 39.8 Seconds (9.6-11.5)
[2018-04-22 07:37] VITALS: BP 112/68
[2018-04-22] MEDS: SENNA/DOCUSATE TABLET PO SCH (10:14)
[2018-04-22] MEDS: AMOXICILLIN/CLAV 875-125MG TABLET PO SCH ×2 (10:14→20:08)
[2018-04-22] MEDS: TAMSULOSIN 0.4 MG CAP.ER.24H PO SCH (10:14)
[2018-04-22] MEDS: FINASTERIDE 5 MG TABLET PO SCH (10:14)
[2018-04-22] MEDS: RISPERIDONE 1 MG TABLET PO SCH ×2 (10:15→20:08)
[2018-04-22] MEDS ORDERED: HOLD COUMADIN MC PRN (11:30)
[2018-04-22 13:10] VITALS: BP 122/62
[2018-04-22 19:10] VITALS: BP 117/59
[2018-04-23 01:41] VITALS: BP 124/68
[2018-04-23] MEDS: LORazepam 1MG TABLET PO PRN (04:52)
[2018-04-23 07:39] LABS: INTERNATIONAL NORMALIZED RATIO 3.16 (0.93-1.1)
[2018-04-23] MEDS: BUDESONIDE 0.5 MG/2 ML INHA HHN SCH ×2 (09:00→11:24)
[2018-04-23 09:03] VITALS: BP 112/68
[2018-04-23] MEDS: CARVEDILOL 12.5 MG TABLET PO SCH ×2 (09:28→16:55)
[2018-04-23] MEDS: SENNA/DOCUSATE TABLET PO SCH (09:28)
[2018-04-23] MEDS: TAMSULOSIN 0.4 MG CAP.ER.24H PO SCH (09:28)
[2018-04-23] MEDS: FINASTERIDE 5 MG TABLET PO SCH (09:28)
[2018-04-23] MEDS: FERROUS SULFATE 325 MG TABLET PO SCH (09:28)
[2018-04-23] MEDS: RISPERIDONE 1 MG TABLET PO SCH ×2 (09:29→23:35)
[2018-04-23 09:44] LABS: ANION GAP 5 mmol/L (5-15); CALCIUM 9.1 mg/dL (8.5-10.1); CHLORIDE 113 mmol/L (98-107); CREATININE 1.75 mg/dL (0.7-1.3)
[2018-04-23 09:46] LABS: MEAN CORPUSCULAR HEMOGLOBIN 26.7 pg (27.5-34.5); MEAN CORPUSCULAR HGB CONC 32.1 g/dL (33.2-36.2); MEAN CORPUSCULAR VOLUME 83.2 fL (81-97); MEAN PLATELET VOLUME 8.2 fL (7.4-10.4); PLATELET COUNT 313 x10^3/uL (130-400); RED BLOOD COUNT 4.01 x10^6/uL (4.38-5.82); RED CELL DISTRIBUTION WIDTH 17.9 % (9.4-14.8)
[2018-04-23 10:30] LABS: MD MORPH REVIEW ONLY
[2018-04-23 10:31] LABS: <PLATELET ESTIMATE> ADEQUATE; <PLT MORPHOLOGY> NORMAL PLT MORPH; ANISOCYTOSIS 1+; BASOPHILS # (AUTO) 0.02 x10^3/uL (0-0.1); BASOPHILS % (AUTO) 0 % (0-1); EOSINOPHILS # (AUTO) 0.17 x10^3/uL (0-0.4); EOSINOPHILS % (AUTO) 3 % (1-7); HYPOCHROMIA 1+; LYMPHOCYTES # (AUTO) 0.92 x10^3/uL (1-3.4); LYMPHOCYTES % (AUTO) 13 % (22-44); MONOCYTES # (AUTO) 0.35 x10^3/uL (0.2-0.8); MONOCYTES % (AUTO) 5 % (2-9); NEUTROPHILS # (AUTO) 5.59 x10^3/uL (1.8-6.8); NEUTROPHILS % (AUTO) 79 % (42-75); OVALOCYTES 1+
[2018-04-23 12:20] VITALS: BP 104/66
[2018-04-23] MEDS ORDERED: POTASSIUM CHLORIDE 20 MEQ TAB.ER.PRT PO ONE (16:30)
[2018-04-23 20:00] VITALS: BP 116/71
[2018-04-23] MEDS: LORazepam 2 MG/ML, 1ML IVPush PRN (23:34)
[2018-04-23 23:38] VITALS: BP 121/78
[2018-04-24 05:30] LABS: INTERNATIONAL NORMALIZED RATIO 2.22 (0.93-1.1); PROTHROMBIN TIME 22.8 Seconds (9.6-11.5)
[2018-04-24 05:53] VITALS: BP 117/75
[2018-04-24 07:20] VITALS: BP 147/98
[2018-04-24] MEDS: BUDESONIDE 0.5 MG/2 ML INHA HHN SCH (08:05)
[2018-04-24] MEDS: FINASTERIDE 5 MG TABLET PO SCH (08:39)
[2018-04-24] MEDS: RISPERIDONE 1 MG TABLET PO SCH (08:39)
[2018-04-24] MEDS: SENNA/DOCUSATE TABLET PO SCH (08:40)
[2018-04-24] MEDS: CARVEDILOL 12.5 MG TABLET PO SCH (08:40)
[2018-04-24] MEDS: TAMSULOSIN 0.4 MG CAP.ER.24H PO SCH (08:40)
[2018-04-24] MEDS ORDERED: FERROUS SULFATE 220 MG/5 ML ORAL SOL PO SCH (09:00)
[2018-04-24] MEDS ORDERED: Warfarin Maintenance Protocol XX (16:29)
[2018-04-24] MEDS ORDERED: IPRA3AMP30 HHN (16:29)
[2018-04-24] MEDS ORDERED: WARF5TAB PO-COUM (16:29)
[2018-04-24] MEDS ORDERED: FERR220S6 PO (16:29)
[2018-04-24] MEDS ORDERED: ERGO500017 PO (16:29)
[2018-04-24] MEDS ORDERED: CARV12.543 PO (16:29)
[2018-04-24] MEDS ORDERED: FINA5TAB4 PO (16:29)
[2018-04-24] MEDS ORDERED: POLY17PO5 PO (16:29)
[2018-04-24] MEDS ORDERED: ONDA4TAB13 PO (16:29)
[2018-04-24] MEDS ORDERED: SENN1TAB8 PO (16:29)
[2018-04-24] MEDS ORDERED: RISP1TAB45 PO (16:29)
[2018-04-24] MEDS ORDERED: WARFARIN 5 MG TABLET PO-COUM ONE (18:00)
== END 2018-04-24 18:10 | DRG 871 ==
LOC: ED 09:39 → EDIP 10:01 → 4EST 11:05 → 4WST 04-05 10:03 → 4NOR 04-06 23:08 → 3NE 04-16 18:12
PROVIDERS: ADMIT Internal Medicine; ATTEND Internal Medicine
PROC: 0T9B70Z Drainage of Bladder with Drainage Device, Via Natural or Artificial Opening (ICD-10-PCS; principal; 2018-03-31)
DX: A41.9 Sepsis, unspecified organism (principal); J69.0 Pneumonitis due to inhalation of food and vomit; J15.5 Pneumonia due to Escherichia coli; J96.21 Acute and chronic respiratory failure with hypoxia; E87.1 Hypo-osmolality and hyponatremia; F20.1 Disorganized schizophrenia; G93.40 Encephalopathy, unspecified; I50.30 Unspecified diastolic (congestive) heart failure; L03.116 Cellulitis of left lower limb; L03.115 Cellulitis of right lower limb; M48.52XA Collapsed vertebra, not elsewhere classified, cervical region, initial encounter for fracture; M48.56XA Collapsed vertebra, not elsewhere classified, lumbar region, initial encounter for fracture; N17.9 Acute kidney failure, unspecified; N39.0 Urinary tract infection, site not specified; B95.1 Streptococcus, group B, as the cause of diseases classified elsewhere; D50.9 Iron deficiency anemia, unspecified; E53.8 Deficiency of other specified B group vitamins; E66.9 Obesity, unspecified; E78.1 Pure hyperglyceridemia; E86.0 Dehydration; F41.9 Anxiety disorder, unspecified; K80.20 Calculus of gallbladder without cholecystitis without obstruction; R53.81 Other malaise; R74.0 Nonspecific elevation of levels of transaminase and lactic acid dehydrogenase [LDH]; W18.39XA Other fall on same level, initial encounter; M81.0 Age-related osteoporosis without current pathological fracture; N14.1 Nephropathy induced by other drugs, medicaments and biological substances; T50.8X5A Adverse effect of diagnostic agents, initial encounter; Z68.29 Body mass index [BMI] 29.0-29.9, adult; Z56.0 Unemployment, unspecified; Z79.01 Long term (current) use of anticoagulants; Z81.8 Family history of other mental and behavioral disorders; Z86.711 Personal history of pulmonary embolism; Z86.718 Personal history of other venous thrombosis and embolism; Y93.89 Activity, other specified; Y92.89 Other specified places as the place of occurrence of the external cause; Y99.8 Other external cause status
CPT/HCPCS: 36415; 73502; 84145; 87400; 99291; J7042; J7620; J7626; 70450; 71045; 71275; 72125; 72128; 72131; 76700; 76770; 80048; 80053; 80202; 80307; 81001; 82140; 82570; 82607; 83540; 83550; 83605; 83735; 83880; 84100; 84156; 84300; 84439; 84443; 84484; 85025; 85520; 85610; 87040; 87070; 87086; 87147; 87186; 87205; 93005; 93306; 93880; 93970; 94640; 96361; 96374; G0378; J0295; J0696; J1644; J1940; J2543; J3370; J3411; J3475; J3480; J7070; Q9967; J2060; J7030; J7040; J7050